=== PATIENT | male | born 1985 | race Hispanic/Latino ===

== ENCOUNTER 2018-07-08 12:48 | Emergency (ER) | payer SELFPAY ==
[2018-07-08] MEDS ORDERED: KETOROLAC TROMETHAMINE 60 MG/2 ML VIAL ONE (13:54)
[2018-07-08] MEDS ORDERED: ACETAMINOPHEN-CODEINE 300/30MG TAB ONE (13:54)
== END 2018-07-08 14:22 | disposition home or self-care (01) ==
LOC: EDH 12:48
DX: S62.314A Displaced fracture of base of fourth metacarpal bone, right hand, initial encounter for closed fracture (principal); S62.316A Displaced fracture of base of fifth metacarpal bone, right hand, initial encounter for closed fracture; Z87.891 Personal history of nicotine dependence; W22.01XA Walked into wall, initial encounter; Y93.89 Activity, other specified; Y92.098 Other place in other non-institutional residence as the place of occurrence of the external cause; Y99.8 Other external cause status
CPT/HCPCS: 29125; 73130; 96372; 99283; J1885